=== PATIENT | female | born 1995 | race Caucasian/White ===

== ENCOUNTER 2017-05-22 17:14 | Inpatient (IN) | payer MEDICAID, OTHER ==
[~2017-05-22] VITALS: Ht 157.5 cm; Wt 87.6 kg
[2017-05-22] MEDS ORDERED: MULT-1203 PO (17:32)
[2017-05-22] MEDS ORDERED: OXCA300T PO (17:32)
[2017-05-22] MEDS ORDERED: OLAN5TAB2 PO (17:32)
[2017-05-22] MEDS ORDERED: ARIP15TA2 PO (17:32)
[2017-05-22] MEDS ORDERED: BENZ2TAB10 PO (17:32)
[2017-05-22] MEDS ORDERED: CLON-570 PO (17:32)
[2017-05-22] MEDS ORDERED: ASPI81 PO (17:32)
[2017-05-22] MEDS ORDERED: LORazepam 1 MG TABLET PO ONE (18:45)
[2017-05-22 18:49] LABS: BASOPHILS % (AUTO) 0.4 % (0.0-2.0); EOSINOPHILS % (AUTO) 0.3 % (1.0-6.0); HEMATOCRIT 41.2 % (36-46); LYMPHOCYTES # (AUTO) 2.4 K/uL (1.0-4.8); LYMPHOCYTES % (AUTO) 22.6 % (22.0-44.0); MEAN CORPUSCULAR HEMOGLOBIN 29.5 pg (26.0-34.0); MEAN CORPUSCULAR HGB CONC 34.1 G/dL (31.0-37.0); MEAN CORPUSCULAR VOLUME 87 fL (80-100); MONOCYTES # (AUTO) 0.5 K/uL (0.1-1.0); MONOCYTES % (AUTO) 4.6 % (2.0-9.0); NEUTROPHILS # (AUTO) 7.7 K/uL (1.8-7.7); NEUTROPHILS % (AUTO) 72.1 % (40.0-70.0); PLATELET COUNT (AUTO) 360 K/uL (150-450); RED BLOOD CELL COUNT(AUTO) 4.75 MIL/uL (4.00-5.20)
[2017-05-22 19:00] LABS: ANION GAP 11 mmol/L (8-16); CALCIUM, TOTAL 8.6 mg/dL (8.8-10.5); CARBON DIOXIDE 25 mmol/L (22-29); CHLORIDE 105 mmol/L (98-107); CREATININE 0.85 mg/dL (0.60-1.30); GLOMERULAR FILTR. RATE CALC > 60 mL/min (>60); GLUCOSE,RANDOM 120 mg/dL (70-110); POTASSIUM 3.7 mmol/L (3.5-5.1); SODIUM SERUM 141 mmol/L (136-145); UREA NITROGEN, BLOOD 13 mg/dL (7-18)
[2017-05-22] MEDS ORDERED: LORazepam 2 MG TABLET PO PRN (19:00)
[2017-05-22] MEDS ORDERED: ZOLPIDEM TARTRATE 10 MG TABLET PO PRN (19:00)
[2017-05-22] MEDS ORDERED: HALOPERIDOL 5 MG TABLET PO PRN (19:00)
[2017-05-22 19:11] LABS: ALANINE AMINOTRANSFERASE 58 U/L (12-78); ALBUMIN 3.5 g/dL (3.4-5.0); ALKALINE PHOSPHATASE 86 U/L (46-116); ASPARTATE AMINOTRANSFERASE 25 U/L (15-37); BILIRUBIN,TOTAL 0.1 mg/dL (0.1-1.0); TOTAL PROTEIN, SERUM 8.3 g/dL (6.4-8.2)
[2017-05-22 19:45] VITALS: BP 133/67
[2017-05-23 08:30] VITALS: BP 124/72
[2017-05-23] MEDS ORDERED: ACETAMINOPHEN 325 MG TABLET PO PRN (15:00)
[2017-05-23] MEDS ORDERED: IBUPROFEN 400 MG TABLET PO PRN (15:00)
[2017-05-23] MEDS ORDERED: HALOPERIDOL LACTATE 5 MG/ML VIAL IM ONE (15:15)
[2017-05-23] MEDS ORDERED: LORazepam 2 MG/ML VIAL IM ONE (15:30)
[2017-05-23] MEDS ORDERED: DiphenhydrAMINE HCL 50 MG/ML VIAL IM ONE (15:30)
[2017-05-23 16:31] VITALS: BP 146/84
[2017-05-24] MEDS ORDERED: LEVOTHYROXINE SODIUM 50 MCG TABLET PO SCH (07:00)
[2017-05-24 07:20] LABS: CHOL/HDL RATIO 3.6 (3.9-5.7); FREE T4 (FREE THYROXINE) 0.7 ng/dL (0.76-1.46)
[2017-05-24] MEDS: ASPIRIN 81 MG CHEWABLE TABLET PO SCH (08:45)
[2017-05-24] MEDS: MULTIVITAMINS, THERAPEUTIC TABLET PO SCH (08:45)
[2017-05-24] MEDS: CloNIDine HCL 0.1 MG TABLET PO SCH (09:00)
[2017-05-24 09:11] VITALS: BP 104/74
[2017-05-24] MEDS: OXcarbazepine 300 MG TABLET PO SCH (16:31)
[2017-05-24 19:24] VITALS: BP 106/71
[2017-05-24] MEDS ORDERED: ACETAMINOPHEN 325 MG TABLET PO PRN (20:00)
[2017-05-24] MEDS ORDERED: IBUPROFEN 400 MG TABLET PO PRN (20:00)
[2017-05-24] MEDS: ARIPiprazole 15 MG TABLET PO SCH (21:08)
[2017-05-25] MEDS: LEVOTHYROXINE SODIUM 75 MCG TABLET PO SCH (06:34)
[2017-05-25] MEDS: OXcarbazepine 300 MG TABLET PO SCH ×2 (08:42→17:35)
[2017-05-25] MEDS: MULTIVITAMINS, THERAPEUTIC TABLET PO SCH (08:42)
[2017-05-25] MEDS: ASPIRIN 81 MG CHEWABLE TABLET PO SCH (08:42)
[2017-05-25] MEDS: CloNIDine HCL 0.1 MG TABLET PO SCH (08:42)
[2017-05-25] MEDS: ARIPiprazole 15 MG TABLET PO SCH ×2 (08:42→20:31)
[2017-05-25 08:55] VITALS: BP 129/76
[2017-05-25 16:00] VITALS: BP 113/68
[2017-05-26 03:38] VITALS: BP 131/73
[2017-05-26] MEDS: LEVOTHYROXINE SODIUM 75 MCG TABLET PO SCH (06:50)
[2017-05-26 08:18] VITALS: BP 111/74
[2017-05-26] MEDS: CloNIDine HCL 0.1 MG TABLET PO SCH (09:00)
[2017-05-26] MEDS: MULTIVITAMINS, THERAPEUTIC TABLET PO SCH (09:00)
[2017-05-26] MEDS: ASPIRIN 81 MG CHEWABLE TABLET PO SCH (09:01)
[2017-05-26] MEDS: OXcarbazepine 300 MG TABLET PO SCH ×2 (09:02→16:39)
[2017-05-26] MEDS: ARIPiprazole 15 MG TABLET PO SCH ×2 (09:02→20:02)
[2017-05-26 16:00] VITALS: BP 120/70
[2017-05-27] MEDS: LEVOTHYROXINE SODIUM 75 MCG TABLET PO SCH (07:08)
[2017-05-27] MEDS: MULTIVITAMINS, THERAPEUTIC TABLET PO SCH (08:11)
[2017-05-27] MEDS: ASPIRIN 81 MG CHEWABLE TABLET PO SCH (08:12)
[2017-05-27] MEDS: CloNIDine HCL 0.1 MG TABLET PO SCH (08:12)
[2017-05-27] MEDS: ARIPiprazole 15 MG TABLET PO SCH ×2 (08:12→21:05)
[2017-05-27] MEDS: OXcarbazepine 300 MG TABLET PO SCH ×2 (08:12→17:42)
[2017-05-27 08:51] VITALS: BP 121/69
[2017-05-27 16:06] VITALS: BP 107/73
[2017-05-28] MEDS: LEVOTHYROXINE SODIUM 75 MCG TABLET PO SCH (06:53)
[2017-05-28 08:21] VITALS: BP 118/75
[2017-05-28] MEDS: CloNIDine HCL 0.1 MG TABLET PO SCH (08:49)
[2017-05-28] MEDS: OXcarbazepine 300 MG TABLET PO SCH (08:49)
[2017-05-28] MEDS: MULTIVITAMINS, THERAPEUTIC TABLET PO SCH (08:49)
[2017-05-28] MEDS: ASPIRIN 81 MG CHEWABLE TABLET PO SCH (08:50)
[2017-05-28] MEDS: ARIPiprazole 15 MG TABLET PO SCH (08:50)
[2017-05-28] MEDS ORDERED: LEVO50TA11 PO (11:35)
== END 2017-05-28 13:25 | disposition home or self-care (01) | DRG 750 ==
LOC: EMS 17:16 → 3EC 19:45
PROVIDERS: ADMIT Psychiatry & Neurology Psychiatry; ATTEND Psychiatry & Neurology Psychiatry
DX: F25.9 Schizoaffective disorder, unspecified (principal); Q90.9 Down syndrome, unspecified; E03.9 Hypothyroidism, unspecified; R00.0 Tachycardia, unspecified; Z88.0 Allergy status to penicillin
CPT/HCPCS: 84439; 84443; 99285; G0480; J1200; J1630; J2060

== ENCOUNTER 2017-06-21 23:42 | Inpatient (IN) | payer MEDICAID ==
[~2017-06-21] VITALS: Ht 152.4 cm; Wt 86.6 kg
[~2017-06-21 23:42] MED LIST: ARIP15TA2 PO; ASPI81 PO; CLON-570 PO; LEVO50TA11 PO; MULT-1203 PO; OXCA300T PO
[2017-06-21] MEDS ORDERED: NITR50 PO (23:51)
[2017-06-21] MEDS ORDERED: DIPH50 PO (23:51)
[2017-06-21] MEDS ORDERED: DIVA250T25 PO (23:51)
[2017-06-21] MEDS ORDERED: PHEN-933 PO (23:51)
[2017-06-21] MEDS ORDERED: RISP2L PO (23:51)
[2017-06-22] MEDS ORDERED: ZOLPIDEM TARTRATE 10 MG TABLET PO PRN (00:30)
[2017-06-22 00:40] LABS: BASOPHILS # (AUTO) 0.08 K/uL (0.00-0.20); BASOPHILS % (AUTO) 0.8 % (0.0-2.0); EOSINOPHILS # (AUTO) 0.02 K/uL (0.00-0.70); EOSINOPHILS % (AUTO) 0.15 % (1.0-6.0); HEMATOCRIT 37.2 % (36-46); HEMOGLOBIN 12.5 g/dL (12.0-16.0); LYMPHOCYTES # (AUTO) 2.1 K/uL (1.0-4.8); LYMPHOCYTES % (AUTO) 19.4 % (22.0-44.0); MEAN CORPUSCULAR HEMOGLOBIN 29.7 pg (26.0-34.0); MEAN CORPUSCULAR HGB CONC 33.7 G/dL (31.0-37.0); MEAN CORPUSCULAR VOLUME 88 fL (80-100); MONOCYTES # (AUTO) 0.7 K/uL (0.1-1.0); MONOCYTES % (AUTO) 6.5 % (2.0-9.0); NEUTROPHILS % (AUTO) 73.3 % (40.0-70.0); PLATELET COUNT (AUTO) 290 K/uL (150-450); RED BLOOD CELL COUNT(AUTO) 4.23 MIL/uL (4.00-5.20); RED CELL DISTRIBUTION WIDTH 14.8 % (11.5-14.5)
[2017-06-22 00:43] LABS: AMPHET/METH SCREEN,URINE NEGATIVE (NEGATIVE); BARBITURATE SCREEN, URINE NEGATIVE (NEGATIVE); BENZODIAZEPINES SCREEN,URINE NEGATIVE (NEGATIVE); CANNABINOID SCREEN,URINE NEGATIVE (NEGATIVE); COCAINE SCREEN,URINE NEGATIVE (NEGATIVE); METHADONE SCREEN, URINE NEGATIVE (NEGATIVE); OPIATE SCREEN,URINE NEGATIVE (NEGATIVE)
[2017-06-22 00:45] LABS: PHENCYCLIDINE SCREEN,URINE NEGATIVE (NEGATIVE)
[2017-06-22 00:52] LABS: GLUCOSE, URINE (UA) NEGATIVE (NEGATIVE); KETONES,URINE 15 mg/dL (NEGATIVE); LEUKOCYTE ESTERASE ,URINE MODERATE (NEGATIVE); NITRATE,URINE POSITIVE (NEGATIVE); OCCULT BLOOD,URINE NEGATIVE (NEGATIVE); PROTEIN,URINE NEGATIVE (NEGATIVE)
[2017-06-22 00:54] LABS: APPEARANCE,URINE HAZY (CLEAR); BILIRUBIN,URINE PRELIM. POSITIVE (NEGATIVE)
[2017-06-22 00:57] LABS: ANION GAP 9 mmol/L (8-16); CALCIUM, TOTAL 8.4 mg/dL (8.8-10.5); CARBON DIOXIDE 26 mmol/L (22-29); CHLORIDE 102 mmol/L (98-107); CREATININE 0.77 mg/dL (0.60-1.30); GLOMERULAR FILTR. RATE CALC > 60 mL/min (>60); GLUCOSE,RANDOM 96 mg/dL (70-110); SODIUM SERUM 137 mmol/L (136-145); UREA NITROGEN, BLOOD 14 mg/dL (7-18)
[2017-06-22 01:06] LABS: BACTERIA,URINE Rare /HPF (None Seen); RBC,URINE 0-2 /HPF (0-2)
[2017-06-22 01:07] LABS: SQUAMOUS EPITHELIAL CELL,UR Few /LPF (None Seen)
[2017-06-22 01:11] LABS: ALANINE AMINOTRANSFERASE 42 U/L (12-78); ALBUMIN 3.2 g/dL (3.4-5.0); ALKALINE PHOSPHATASE 77 U/L (46-116); ASPARTATE AMINOTRANSFERASE 22 U/L (15-37); BILIRUBIN,TOTAL 0.3 mg/dL (0.1-1.0); CHOL/HDL RATIO 3.7 (3.9-5.7); CHOLESTEROL 180 mg/dL (131-200); HDL CHOLESTEROL 49 mg/dL (40-60); LDL CHOL (CALC.) 115 mg/dL (0-130); THYROID STIMULATING HORMONE 5.23 uIU/mL (0.36-3.74); TOTAL PROTEIN, SERUM 7.6 g/dL (6.4-8.2); TRIGLYCERIDES 81 mg/dL (15-150); VALPROIC ACID 35 mcg/mL (50-100)
[2017-06-22] MEDS ORDERED: POTASSIUM CHLORIDE 10% 40 MEQ/30 ML LIQUID UDCUP PO ONE (01:15)
[2017-06-22 02:15] VITALS: BP 116/60
[2017-06-22] MEDS ORDERED: LEVOTHYROXINE SODIUM 25 MCG TABLET PO SCH (06:30)
[2017-06-22] MEDS ORDERED: HALOPERIDOL LACTATE 5 MG/ML VIAL ONE (10:17)
[2017-06-22] MEDS ORDERED: DiphenhydrAMINE HCL 50 MG/ML VIAL ONE (10:17)
[2017-06-22] MEDS ORDERED: LORazepam 2 MG/ML VIAL ONE (10:17)
[2017-06-22] MEDS ORDERED: DiphenhydrAMINE HCL 50 MG/ML VIAL IM ONE (10:30)
[2017-06-22] MEDS ORDERED: LORazepam 2 MG/ML VIAL IM ONE (10:30)
[2017-06-22] MEDS ORDERED: HALOPERIDOL LACTATE 5 MG/ML VIAL IM ONE (10:30)
[2017-06-22] MEDS: VALPROIC ACID 250 MG/5 ML SYRUP UDCUP PO SCH ×2 (11:00→17:41)
[2017-06-22] MEDS: OXcarbazepine 300 MG TABLET PO SCH ×2 (11:01→17:41)
[2017-06-22] MEDS: RisperiDONE CONC 1 MG/ML SOLUTION ORAL.SYG PO SCH ×2 (12:40→21:51)
[2017-06-22] MEDS ORDERED: MACR100 PO (17:32)
[2017-06-22] MEDS ORDERED: LEVO75 PO (17:32)
[2017-06-22 17:52] VITALS: BP 128/75
[2017-06-23 06:25] VITALS: BP 108/68
[2017-06-23] MEDS: LEVOTHYROXINE SODIUM 75 MCG TABLET PO SCH (06:38)
[2017-06-23 09:20] VITALS: BP 128/79
[2017-06-23] MEDS: VALPROIC ACID 250 MG/5 ML SYRUP UDCUP PO SCH ×2 (09:31→16:35)
[2017-06-23] MEDS: OXcarbazepine 300 MG TABLET PO SCH ×2 (09:31→16:35)
[2017-06-23] MEDS: ASPIRIN 81 MG CHEWABLE TABLET PO SCH (09:31)
[2017-06-23] MEDS: HALOPERIDOL 5 MG TABLET PO PRN (09:31)
[2017-06-23] MEDS: NITROFURANTOIN/NITROFURAN MAC 100 MG CAPSULE [MACROBID] PO SCH ×2 (09:31→16:35)
[2017-06-23] MEDS: RisperiDONE CONC 1 MG/ML SOLUTION ORAL.SYG PO SCH ×2 (09:32→17:00)
[2017-06-23 16:39] VITALS: BP 108/70
[2017-06-24] MEDS: LEVOTHYROXINE SODIUM 75 MCG TABLET PO SCH (06:22)
[2017-06-24 06:28] VITALS: BP 110/72
[2017-06-24] MEDS ORDERED: LEVOTHYROXINE SODIUM 75 MCG TABLET PO SCH (06:30)
[2017-06-24] MEDS: RisperiDONE CONC 1 MG/ML SOLUTION ORAL.SYG PO SCH ×2 (08:36→16:09)
[2017-06-24] MEDS: NITROFURANTOIN/NITROFURAN MAC 100 MG CAPSULE [MACROBID] PO SCH ×2 (08:40→16:10)
[2017-06-24] MEDS: HALOPERIDOL 5 MG TABLET PO PRN (08:40)
[2017-06-24] MEDS: ASPIRIN 81 MG CHEWABLE TABLET PO SCH (08:40)
[2017-06-24] MEDS: LORazepam 2 MG TABLET PO PRN (08:40)
[2017-06-24] MEDS: OXcarbazepine 300 MG TABLET PO SCH ×2 (08:40→16:11)
[2017-06-24] MEDS: VALPROIC ACID 250 MG/5 ML SYRUP UDCUP PO SCH ×2 (08:40→16:10)
[2017-06-24 08:45] VITALS: BP 108/74
[2017-06-24 16:25] VITALS: BP 111/67
[2017-06-25] MEDS: LEVOTHYROXINE SODIUM 75 MCG TABLET PO SCH (06:23)
[2017-06-25] MEDS: OXcarbazepine 300 MG TABLET PO SCH ×2 (09:08→16:22)
[2017-06-25] MEDS: ASPIRIN 81 MG CHEWABLE TABLET PO SCH (09:08)
[2017-06-25] MEDS: NITROFURANTOIN/NITROFURAN MAC 100 MG CAPSULE [MACROBID] PO SCH ×2 (09:08→16:23)
[2017-06-25] MEDS: VALPROIC ACID 250 MG/5 ML SYRUP UDCUP PO SCH ×2 (09:09→16:22)
[2017-06-25] MEDS: LORazepam 2 MG TABLET PO PRN ×2 (09:12→21:34)
[2017-06-25] MEDS: RisperiDONE CONC 1 MG/ML SOLUTION ORAL.SYG PO SCH ×2 (09:12→16:23)
[2017-06-25 16:09] VITALS: BP 118/74
[2017-06-26] MEDS: LEVOTHYROXINE SODIUM 75 MCG TABLET PO SCH (06:24)
[2017-06-26] MEDS: NITROFURANTOIN/NITROFURAN MAC 100 MG CAPSULE [MACROBID] PO SCH ×2 (08:35→16:44)
[2017-06-26] MEDS: OXcarbazepine 300 MG TABLET PO SCH ×2 (08:35→16:45)
[2017-06-26] MEDS: VALPROIC ACID 250 MG/5 ML SYRUP UDCUP PO SCH ×2 (08:35→16:44)
[2017-06-26] MEDS: ASPIRIN 81 MG CHEWABLE TABLET PO SCH (08:35)
[2017-06-26] MEDS: RisperiDONE CONC 1 MG/ML SOLUTION ORAL.SYG PO SCH ×2 (09:00→16:45)
[2017-06-26 09:04] VITALS: BP 100/65
[2017-06-26 16:00] VITALS: BP 116/75
[2017-06-26] MEDS ORDERED: LORazepam 2 MG/ML VIAL IM ONE (17:30)
[2017-06-26] MEDS ORDERED: DiphenhydrAMINE HCL 50 MG/ML VIAL IM ONE (17:30)
[2017-06-26] MEDS ORDERED: HALOPERIDOL LACTATE 5 MG/ML VIAL IM ONE (17:30)
[2017-06-27] MEDS: LEVOTHYROXINE SODIUM 75 MCG TABLET PO SCH (07:10)
[2017-06-27] MEDS: RisperiDONE CONC 1 MG/ML SOLUTION ORAL.SYG PO SCH ×2 (08:24→16:24)
[2017-06-27] MEDS: NITROFURANTOIN/NITROFURAN MAC 100 MG CAPSULE [MACROBID] PO SCH ×2 (08:24→16:24)
[2017-06-27] MEDS: VALPROIC ACID 250 MG/5 ML SYRUP UDCUP PO SCH ×2 (08:25→16:23)
[2017-06-27] MEDS: ASPIRIN 81 MG CHEWABLE TABLET PO SCH (08:25)
[2017-06-27] MEDS: OXcarbazepine 300 MG TABLET PO SCH ×2 (08:25→16:24)
[2017-06-27 09:02] VITALS: BP 110/67
[2017-06-27] MEDS ORDERED: ACETAMINOPHEN 325 MG TABLET PO PRN (13:15)
[2017-06-27] MEDS ORDERED: IBUPROFEN 600 MG TABLET PO PRN (13:15)
[2017-06-27 16:19] VITALS: BP 111/68
[2017-06-27] MEDS: LORazepam 2 MG TABLET PO PRN (16:24)
[2017-06-27] MEDS: HALOPERIDOL 5 MG TABLET PO PRN (16:24)
[2017-06-28] MEDS: LEVOTHYROXINE SODIUM 75 MCG TABLET PO SCH (06:36)
[2017-06-28] MEDS: NITROFURANTOIN/NITROFURAN MAC 100 MG CAPSULE [MACROBID] PO SCH (08:28)
[2017-06-28] MEDS: ASPIRIN 81 MG CHEWABLE TABLET PO SCH (08:28)
[2017-06-28] MEDS: RisperiDONE CONC 1 MG/ML SOLUTION ORAL.SYG PO SCH (08:29)
[2017-06-28] MEDS: OXcarbazepine 300 MG TABLET PO SCH (08:29)
[2017-06-28] MEDS: VALPROIC ACID 250 MG/5 ML SYRUP UDCUP PO SCH (08:29)
[2017-06-28 08:35] VITALS: BP 100/67
[2017-06-28] MEDS ORDERED: VALP250 PO (09:22)
[2017-06-28] MEDS ORDERED: VALP250S23 PO (09:33)
[2017-06-28 16:19] VITALS: BP 116/64
== END 2017-06-28 16:50 | disposition home or self-care (01) | DRG 750 ==
LOC: EMS 23:43 → B3A 06-22 01:00
PROVIDERS: ADMIT Psychiatry & Neurology Psychiatry; ATTEND Psychiatry & Neurology Psychiatry
DX: F25.9 Schizoaffective disorder, unspecified (principal); F29 Unspecified psychosis not due to a substance or known physiological condition; N39.0 Urinary tract infection, site not specified; G47.00 Insomnia, unspecified; E87.6 Hypokalemia; E03.9 Hypothyroidism, unspecified; Z79.899 Other long term (current) drug therapy; Q90.9 Down syndrome, unspecified; Z88.0 Allergy status to penicillin; Z79.82 Long term (current) use of aspirin
CPT/HCPCS: 84132; 84443; 87081; 99285; G0480; J1200; J1630; J2060